=== PATIENT | female | born 1975 | race Two or more races ===

== ENCOUNTER 2024-05-22 08:46 | Emergency (ER) | payer MEDICAID, OTHER ==
[~2024-05-22] VITALS: Ht 157.5 cm; Wt 63.6 kg
[2024-05-22 09:21] VITALS: TEMP 96
[2024-05-22 09:24] VITALS: PULSE 63; RESP 26; O2SAT 96
--- NOTE | 2024-05-22 09:26 | PRN ---
Misceleneous Note Note Note Rapid screening exam performed: 48-year-old female who presents to the emergency department with symptoms of sudden onset tachypnea, shaking, difficulty moving her arms and hands. B ilateral tingling and numbness of her hands. 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 Last saw her PCP 2 years ago. She took ibuprofen last night for a headache. This time she states she continues to have weakness in her upper and lower extremities. Blood pressure at this time is 145/111. General: Awake, alert and oriented. No acute distress. HEENT: The head is normocephalic and atraumatic. Conjunctivae are clear without exudates or hemorrhage. Sclera is non-icteric. Respiratory: No signs of respiratory distress. No Stridor. Extremities: Upper and lower extremities are atraumatic in appearance without tenderness or deformity. Neurological: The patient is awake, alert and oriented to person, place, and time with normal speech. Speech is clear. There is no facial asymmetry. Psychiatric: Appropriate mood and affect. Good judgement and insight. No visual or auditory hallucinations. No suicidal or homicidal ideation. Plan: Labs, imaging, cardiac monitoring and blood pressure monitoring, Sign out to RASHAAD Degroot MD May 22, 2024 09:26
[2024-05-22 09:41] LABS: Basophils # (auto) 0 10 ^3/uL (0-0.2); Basophils % (auto) 0.4 % (0.0-2.0); Eosinophils # (auto) 0.1 10 ^3/uL (0-0.8); Eosinophils % (auto) 2.4 % (0.0-7.0); Hematocrit 41.6 % (36.0-46.0); Hemoglobin 13.9 g/dL (12.2-16.2); Lymphocytes # (auto) 1.1 10 ^3/uL (0.4-5.4); Lymphocytes % (auto) 17.6 % (10.0-50.0); Mean Corpuscular Hemoglobin 33.2 pg (28.0-32.0); Mean Corpuscular Hgb Conc. 33.5 g/dL (32.0-36.0); Mean Corpuscular Volume 99.3 fL (80.0-100.0); Monocytes # (auto) 0.1 10 ^3/uL (0-1.3); Monocytes % (auto) 2.2 % (0.0-12.0); Neutrophils # (auto) 4.8 10 ^3/uL (1.6-8.6); Neutrophils % (auto) 77.4 % (37.0-80.0); Nucleated Red Blood Cells % 0.1 %; Platelet Count (auto) 207 10^3/uL (140-450); Red Blood Cells 4.19 10^6/uL (4.0-5.20); Red Cell Distribution Width 13.1 % (11.8-14.3); White Blood Cell 6.2 10^3/uL (4.4-10.8)
--- NOTE | 2024-05-22 09:47 | ECG ---
[facility] Test Date: 2024-05-22 Test Time: 09:44:24 Pat Name: BRENDAN HERNANDEZ Department: ER Room: Gender: F Graphics Manager: KARL : 1975 Requested By: RASHAAD DOWNS Order Number: [id number] Reading MD: Joseluis Palma Measurements Intervals [place] Rate: 51 P: 80 VA: 149 QRS: 85 QRSD: 97 T: 31 QT: 475 QTc: 438 Interpretive Statements Sinus rhythm Borderline T wave abnormalities Minimal ST elevation, anterior leads Electronically Signed On 05-28-2024 15:00:08 PST by Joseluis Palma Please click the below link to view image of tracing.
[2024-05-22] MEDS: ONDANSETRON HCL 4 MG/2 ML VIAL IV ONE (09:52)
[2024-05-22 10:14] LABS: Albumin 4.3 g/dL (3.2-4.8); Alkaline Phosphatase 77 U/L (46-116); Anion Gap 11 (5-15); Aspartate Aminotransferase 17 U/L (13-40); BUN/Creatinine Ratio 10.4 (10.0-20.0); Blood Urea Nitrogen 10 mg/dL (9-23); Calcium 9.4 mg/dL (8.7-10.4); Carbon Dioxide 22 mmol/L (20-31); Chloride 105 mmol/L (98-107); Sodium 138 mmol/L (136-145)
[2024-05-22 10:15] LABS: Total Protein 6.9 g/dL (5.7-8.2)
[2024-05-22 10:20] LABS: Alanine Aminotransferase < 9 U/L (7-40); Blood Alcohol < 3.0 mg/dL (<10); Glucose 247 mg/dL (74-106); Magnesium 1.3 mg/dL (1.6-2.6)
--- NOTE | 2024-05-22 10:23 | DVH ---
EXAM: CT HEAD WITHOUT CONTRAST HISTORY: Headache changes symptoms COMPARISON: None TECHNIQUE: Axial images of the head were obtained and reformatted in coronal and sagittal planes. All CT scans at this medical facility are performed using dose modulation techniques as appropriate t o a performed exam including the following: Automated exposure control was utilized; adjustment of th e MA and/or KV according to patient size; and use of iterative reconstruction technique. CT Dose: CTDI volume is 62 mGy. Dose-length product is 1103 mGy*cm FINDINGS: There is no evidence of acute intracranial hemorrhage, mass, mass effect midline shift. There is no h ydrocephalus or extra-axial fluid collection. Waite-white matter differentiation is maintained. The visualized paranasal sinuses and mastoid air cells are clear. The calvarium is intact. IMPRESSION: 1. No acute intracranial process. HS:Y
--- NOTE | 2024-05-22 10:25 | ED.PDOC ---
History of Present Illness HPI Comments 48-year-old female with no significant past medical history brought in by private car complaining of sudden onset of tingling in her hands and feet, sweating, and bilateral hand cramping, onset while riding in a car on her way to a court appearance. Patient states on the ride, she began to feel nausea as if she was developing motion sickness, which caused her to increase her breathing. She subsequently developed the hand cramping/numbness symptoms. She denies any vision changes, headache or focal weakness. On arrival to the ER, her symptoms have resolved. She denies any other symptoms, recent illness or focal weakness. 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 Family History Family History: Reviewed,noncontributory to illness Social History Smoker: Non-Smoker Alcohol: Denies ETOH Use Drugs: Denies Drug Use Lives In: Home Constitutional: denies: chills, diaphoresis, fatigue, fever, malaise, sweats, weakness, others EENTM: denies: blurred vision, double vision, ear bleeding, ear discharge, ear drainage, ear pain, ear ringing, eye pain, eye redness, hearing loss, mouth pain, mouth swelling, nasal discharge, nose bleeding, nose congestion, nose pain, photophobia, tearing, throat pain, throat swelling, voice changes, others Respiratory: denies: cough, hemoptysis, orthopnea, SOB at rest, shortness of breath, SOB with excertion, stridor, wheezing, others Cardiovascular: denies: chest pain, dizzy spells, diaphoresis, Dyspnea on exertion, edema, irregular heart beat, left arm pain, lightheadedness, palpitations, PND, syncope, others Gastrointestinal: denies: abdomen distended, abdominal pain, blood streaked bowels, constipated, diarrhea, dysphagia, difficulty swallowing, hematemesis, melena, nausea, poor appetite, poor fluid intake, rectal bleeding, rectal pain, vomiting, others Genitourinary: denies: abnormal vagina bleeding, burning, dyspareunia, dysuria, flank pain, frequency, hematuria, incontinence, pain, , vagina discharge, urgency, others Neurological: reports: tingling, tremors; denies: dizziness, fainting, headache, left sided numbness, left sided weakness, numbness, paresthesia, pre- existing deficit, right sided numbness, right sided weakness, seizure, speech problems, weakness, others Musculoskeletal: denies: back pain, gout, joint pain, joint swelling, muscle pain, muscle stiffness, neck pain, others Integumetry: denies: bruises, change in color, change in hair/nails, dryness, laceration, lesions, lumps, rash, wounds, others Allergic/Immunocompromised: denies: Difficulty Healing, Frequent Infections, Hives, Itching, others Hematologic/Lymphatic: denies: anemia, blood clots, easy bleeding, easy bruising, swollen glands, others Endocrine: denies: excessive hunger, excessive sweating, excessive thirst, excessive urination, flushing, intolerance to cold, intolerance to heat, unexplained weight gain, unexplained weight loss, others Psychiatric: reports: anxiety; denies: bipolar disorder, depression, hopeless, panic disorder, schizophrenia, sleepless, suicidal, others All Other Systems: Reviewed and Negative Physical Exam General Appearance: No Apparent Distress HEENT: PERRL/EOMI, Other (No facial asymmetry. Moist mucous membranes.) Neck: Full Range of Motion, Normal Inspection Respiratory: Lungs Clear, No Accessory Muscle Use, No Respiratory Distress Cardiovascular: No Edema, No JVD, Regular Rate/Rhythm Breast Exam: Deferred Gastrointestinal: Non Tender, Soft Genitalia: Deferred Pelvic: Deferred Rectal: Deferred Extremities: Normal inspection, Normal range of motion, Non-tender, No pedal edema Musculoskeletal : Apperance: Normal Neurologic: Alert (Oriented x4), edge stainer machine II-XII nml as Tested, No Motor Deficits, N ormal Affect, Normal Mood, No Sensory Deficits Cerebellar Function: NOT DONE Reflexes: NOT DONE Skin: Dry, Normal Color, Warm Lymphatic: NOT DONE Was a procedure done? Was a procedure done?: No EKG EKG : Comments Sinus rhythm, rate 51, normal intervals, normal axis, normal QRS, nonspecific T changes. Differential Dx Considerations may include: Anxiety/panic attack/hyperventilation syndrome, paresthesias, CVA, TIA, electrolyte imbalance, among others X-Ray, Labs, Meds, VS Vital Signs Date Time Temp Pulse Resp B/P (MAP) Pulse Ox O2 Delivery O2 Flow Rate FiO2 05/22/24 09:44 51 05/22/24 09:24 63 26 96 Room Air* 0 21 05/22/24 09:21 96.0 63 26 154/79 (104) 96 96.0 05/22/24 08:50 85.5 49 18 111/91 (98) 100 Lab Test 05/22/24 09:29 Range/Units White Blood Count 6.2 4.4-10.8 10^3/uL Red Blood Count 4.19 4.0-5.20 10^6/uL Hemoglobin 13.9 12.2-16.2 g/dL Hematocrit 41.6 36.0-46.0 % Mean Corpuscular Volume 99.3 80.0-100.0 fL Mean Corpuscular Hemoglobin 33.2 H 28.0-32.0 pg Mean Corpuscular Hemoglobin Concent 33.5 32.0-36.0 g/dL Red Cell Distribution Width 13.1 11.8-14.3 % Platelet Count 207 140-450 10^3/uL Mean Platelet Volume 10.0 6.9-10.8 fL Neutrophils (%) (Auto) 77.4 37.0-80.0 % Lymphocytes (%) (Auto) 17.6 10.0-50.0 % Monocytes (%) (Auto) 2.2 0.0-12.0 % Eosinophils (%) (Auto) 2.4 0.0-7.0 % Basophils (%) (Auto) 0.4 0.0-2.0 % Neutrophils # (Auto) 4.8 1.6-8.6 10 ^3/uL Lymphocytes # (Auto) 1.1 0.4-5.4 10 ^3/uL Monocytes # (Auto) 0.1 0-1.3 10 ^3/uL Eosinophils # (Auto) 0.1 0-0.8 10 ^3/uL Basophils # (Auto) 0 0-0.2 10 ^3/uL Nucleated Red Blood Cells 0.1 % Sodium Level 138 136-145 mmol/L Potassium Level 3.0 L 3.5-5.1 mmol/L Chloride Level 105 98-107 mmol/L Carbon Dioxide Level 22 20-31 mmol/L Anion Gap 11 5-15 Blood Urea Nitrogen 10 9-23 mg/dL Creatinine 0.96 0.550-1.02 mg/dL Glomerular Filtration Rate Calc 74 >90 mL/min BUN/Creatinine Ratio 10.4 10.0-20.0 Serum Glucose 247 H 74-106 mg/dL Calcium Level 9.4 8.7-10.4 mg/dL Magnesium Level 1.3 L 1.6-2.6 mg/dL Total Bilirubin Pending Aspartate Amino Transferase (AST) 17 13-40 U/L Alanine Aminotransferase (ALT) < 9 7-40 U/L Alkaline Phosphatase 77 46-116 U/L Troponin I High Sensitivity < 3 L </=34 ng/L Total Protein 6.9 5.7-8.2 g/dL Albumin 4.3 3.2-4.8 g/dL Lipase Pending Thyroid Stimulating Hormone (TSH) 1.92 0.55-4.78 uIU/mL Plasma/Serum Blood Alcohol < 3.0 <10 mg/dL Current Medications Medications (Trade) Dose Ordered Sig/Margarita Route Start Time Stop Time Status Last Admin Ondansetron HCl (Zofran) 4 mg ONCE ONCE IV 05/22/24 09:30 05/22/24 09:31 DC 05/22/24 09:52 PROCEDURE(s): HWOCT - HEAD WITHOUT CONTRAST REASON: Headache changes symptoms ORDER NUMBER(s): [id number], ACCESSION NUMBER(s): [id number] EXAM: CT HEAD WITHOUT CONTRAST HISTORY: Headache changes symptoms COMPARISON: None TECHNIQUE: Axial images of the head were obtained and reformatted in coronal and sagittal planes. All CT scans at this medical facility are performed using dose modulation techniques as appropriate to a performed exam including the following: Automated exposure control was utilized; adjustment of the MA and/or KV according to patient size; and use of iterative reconstruction technique. CT Dose: CTDI volume is 62 mGy. Dose-length product is 1103 mGy*cm FINDINGS: There is no evidence of acute intracranial hemorrhage, mass, mass effect midline shift. There is no hydrocephalus or extra-axial fluid collection. Waite-white matter differentiation is maintained. The visualized paranasal sinuses and mastoid air cells are clear. The calvarium is intact. IMPRESSION: 1. No acute intracranial process. HS:Y X-Ray, Labs, Meds, VS Comment 48-year-old female with no significant past medical history complaining of nausea, rapid breathing, sweating, with subsequent bilateral hand and foot numbness and hand cramping while on her way to a court appearance Vitals remarkable for heart rate 49, BP 111/91 Exam unremarkable. No focal neurologic deficit Rhythm strip independently interpreted by me: Sinus rhythm, rate 51, no ectopy. Head CT unremarkable CBC unremarkable. CMP remarkable for potassium 3, troponin negative, TSH normal, alcohol negative Patient treated with the following in the ED: Effervescent potassium 50 mEq p.o. Patient was resting comfortably with stable vitals throughout her stay in the ED. She did not have a recurrence of her previous symptoms. She was neurologically intact. Hospitalization was considered, however patient had resolution of her symptoms prior to arrival in the ED and has not had a recurrence. Symptoms are possibly due to hyperventilation syndrome coupled with hypokalemia. Patient now appears stable for discharge with close outpatient follow-up with her primary physician. Time of 1ST Reevaluation: 10:50 Reevaluation 1ST: Unchanged Time of 2ND Reevaluation: 10:57 Reevaluation 2ND: Unchanged Patient Education/Counseling: Diagnosis, Treatment, Prognosis Family Education/Counseling: No Family Present Departure 1 Departure Time of Disposition: 10:57 Impression: Primary Impression: Paresthesias Additional Impression: Hypokalemia Disposition: 01 HOME / SELF CARE / HOMELESS Condition: Stable Additional Instructions: Your head CT was normal. Your EKG was unremarkable. Your blood tests showed your potassium was low. We have replaced your potassium in the ER. Your symptoms may have been due to a combination of low potassium and rapid breathing. Follow-up with your primary doctor in 1-2 days. No further medications are necessary at this time. Discharged With: Self Critical Care Note Critical Care Time?: No Stability Stability form required: No Heart Score Heart Score: Heart Score Response (Comments) Value History N/A 0 EKG N/A 0 Age N/A 0 Risk Factors N/A 0 Troponin N/A 0 Total 0 I personally scribed for BETHANY BUCKNER MD ([email or web address]) on 05/22/24 at 10:24. Electronically submitted by Rafy Muir ([email or web address]). BETHANY BUCKNER MD May 22, 2024 10:24
[2024-05-22] MEDS: POTASSIUM EFFERVESENT TAB 25 MEQ PO ONE (11:11)
[2024-05-22 11:20] VITALS: BP 159/96; PULSE 67; RESP 14; O2SAT 99
[2024-05-22 11:29] LABS: Lipase 36 U/L (12-53)
[2024-05-22 11:51] LABS: Cocaine Screen, Urine Neg (NEGATIVE)
[2024-05-22 11:52] LABS: Amphetamine Screen, Urine Neg (NEGATIVE); Barbiturate Scree,Urine Neg (NEGATIVE); Benzodiazephine Screen, Urine Neg (NEGATIVE); Cannabinoid Screen, Urine Pos (NEGATIVE); Opiate Scree,Urine Neg (NEGATIVE); Phencyclidine Screen, Urine Neg (NEGATIVE)
== END 2024-05-22 11:47 | disposition home or self-care (01) ==
LOC: ER 08:46
DX: E87.6 Hypokalemia (principal); R20.2 Paresthesia of skin; Z79.899 Other long term (current) drug therapy
CPT/HCPCS: 36415; 70450; 80053; 80307; 80320; 83690; 83735; 84443; 84484; 85025; 93005; 96374; 99285; J2405